=== PATIENT | male | born 1965 | race Caucasian/White ===

== ENCOUNTER 2017-10-31 07:37 | Day surgery (SDC) | payer OTHER | END 2017-10-31 12:10 | disposition home or self-care (01) | LOC: AMB-ENDOS 07:37 | DX: K64.1 Second degree hemorrhoids (principal) ==

== ENCOUNTER 2021-04-13 09:37 | Day surgery (SDC) | payer OTHER | END 2021-04-13 15:35 | disposition home or self-care (01) | LOC: AMB-ENDOS 09:37 | PROVIDERS: ATTEND Colon & Rectal Surgery | DX: K62.89 Other specified diseases of anus and rectum (principal); K64.1 Second degree hemorrhoids ==